=== PATIENT | female | born 1990 | race Caucasian/White ===

== ENCOUNTER 2016-08-19 11:39 | Emergency (ER) | payer MEDICAID, OTHER ==
[2016-08-19 11:39] VITALS: BMI 30.2
[2016-08-19 11:47] VITALS: RESP 18
[2016-08-19 13:31] LABS: BASO % 0.7 % (0.0-2.0); EOS # 0.2 K/uL (0.0-0.7); EOS % 3.6 % (0.0-4.0); HEMOGLOBIN 10.8 g/dL (11.0-16.0); LYMPH # 2.1 K/uL (1.0-4.3); MEAN CELL VOLUME 81.5 fL (81.0-99.0); MEAN CORPUSCULAR HEMOGLOBIN 25.7 pg (27.0-31.0); MEAN CORPUSCULAR HGB CONC 31.5 g/dL (33.0-37.0); MEAN PLATELET VOLUME 9.6 fL (7.2-11.7); MONO # 0.6 K/uL (0.0-0.8); MONO % 9.1 % (0.0-10.0); NEUT # 3.3 K/uL (1.8-7.0); NEUT % 53.6 % (50.0-75.0); RBC 4.22 Mil/uL (3.80-5.20); RED CELL DISTRIBUTION WIDTH 15.2 % (11.5-14.5); WHITE BLOOD COUNT 6.2 K/uL (4.8-10.8)
[2016-08-19 13:38] LABS: ALBUMIN 4.3 g/dL (3.5-5.0)
[2016-08-19 13:41] LABS: ALB/GLOB RATIO 1.2 (1.0-2.1); ALT/SGPT 16 U/L (9-52); AST/SGOT 24 U/L (14-36); BLOOD UREA NITROGEN 9 mg/dL (7-17); GFR AFRICAN-AMERICAN > 60; GFR NON-AFRICAN AMERICAN > 60
[2016-08-19 13:42] LABS: CALCIUM 9.1 mg/dl (8.6-10.4)
--- NOTE | 2016-08-19 13:42 | C.PDOC ---
History Of Present Illness 25-year-old female, presents to the emergency department with complaints of vaginal bleed. Patient states she had a normal period on 07/11 for a few days which stopped. States she began bleeding again on 08/02 and has not stopped. Patient notes associated cramping. Denies control use, and is unsure of whether she is . She is sexually active without contraception. No other complaints at this time. Time Seen by Provider: 08/19/16 13:05 Chief Complaint (Nursing): Abdominal Pain History Per: Patient History/Exam Limitations: no limitations Current Symptoms Are (Timing): Still Present Severity: Moderate Location Of Pain/Discomfort: Suprapubic Past Medical History Reviewed: Historical Data, Nursing Documentation, Vital Signs Vital Signs: Last Vital Signs Temp 97.7 F 08/19/16 11:41 Pulse 76 08/19/16 11:41 Resp 18 08/19/16 11:41 BP 118/77 08/19/16 11:41 Pulse Ox 98 08/19/16 13:46 - Medical History PMH: Denies: Depression - [facility] Procedures DELIVERY OF PRODUCTS OF CONCEPTION, EXTERNAL APPROACH (06/21/15) INJECT/INFUSE ELECTROLYT (07/14/13) INJECT/INFUSE NEC (07/14/13) REPAIR PERINEUM SKIN, EXTERNAL APPROACH (06/21/15) Family History: States: No Known Family Hx - Social History Hx Tobacco Use: No Hx Alcohol Use: Yes Hx Substance Use: No - Immunization History Hx Tetanus Toxoid Vaccination: No Hx Influenza Vaccination: No Hx Pneumococcal Vaccination: No Review Of Systems Except As Marked, All Systems Reviewed And Found Negative. Constitutional: Negative for: Fever, Chills Cardiovascular: Negative for: Chest Pain Gastrointestinal: Negative for: Nausea, Vomiting Genitourinary: Positive for: Vaginal Bleeding, Pelvic Pain. Negative for: Dysuria, Frequency, Vaginal Discharge Musculoskeletal: Negative for: Back Pain Skin: Negative for: Rash Neurological: Negative for: Headache, Dizziness Physical Exam - Physical Exam Appears: Non-toxic Skin: Warm, Dry Head: Atraumatic Eye(s): bilateral: Normal Inspection, PERRL Nose: Normal Oral Mucosa: Moist Lips: Normal Appearing Neck: Normal ROM Cardiovascular: Rhythm Regular, No Murmur Respiratory: Normal Breath Sounds, No Accessory Muscle Use Extremity: Normal ROM Neurological/Psych: Oriented x3, Normal Speech ED Course And Treatment - Laboratory Results Result Diagrams: 08/19/16 13:23 08/19/16 13:23 Lab Interpretation: No Acute Changes Interpretation Of Abnormal: Hgb 10.8 BHCG negative O2 Sat by Pulse Oximetry: 98 Reevaluation Time: 14:19 Reassessment Condition: Unchanged Disposition - Disposition Referrals: [facility] [Outside] Disposition: HOME/ ROUTINE Disposition Time: 14:19 Condition: STABLE Additional Instructions: Start an OTC vitamin with iron and follow up with your rate clerk. Return to the ED if your bleeding worsens or the pain increases. Instructions: Dysfunctional Uterine Bleeding (ED) - Clinical Impression Clinical Impression: Dysfunctional uterine bleeding - Scribe Statement The provider has reviewed the documentation as recorded by the Bia Ya All medical record entries made by the Scribe were at my direction and personally dictated by me. I have reviewed the chart and agree that the record accurately reflects my personal performance of the history, physical exam, medical decision making, and the department course for this patient. I have also personally directed, reviewed, and agree with the discharge instructions and disposition.
[2016-08-19 14:30] VITALS: BP 123/78; PULSE 62; TEMP 98.2; O2SAT 99
== END 2016-08-19 14:25 | disposition home or self-care (01) ==
LOC: C.ER 11:39
DX: N93.8 Other specified abnormal uterine and vaginal bleeding (principal)

== ENCOUNTER 2017-01-25 04:26 | Emergency (ER) | payer MEDICAID, OTHER ==
[2017-01-25 04:26] VITALS: BMI 30.2
--- NOTE | 2017-01-25 04:39 | C.PDOC ---
History Of Present Illness pt presents with abdominal pain and constipation since Wednesday. No f/c/n/v. tolerating po. Has very small amount of stool m and feels very bloated Time Seen by Provider: 01/25/17 04:39 History Per: Patient History/Exam Limitations: no limitations Onset/Duration Of Symptoms: Days (5) Current Symptoms Are (Timing): Still Present Context: Other Severity: Moderate Pain Scale Rating Of: 4 Location Of Pain/Discomfort: Diffuse Radiation Of Pain To:: None Quality Of Discomfort: Dull, Cramping Associated Symptoms: Constipation. denies: Fever, Chills, Nausea Exacerbating Factors: None Alleviating Factors: None Last Bowel Movement: Days Ago Recent travel outside of the [place]: No Additional History Per: Patient Abnormal Vaginal Bleeding: No Past Medical History Reviewed: Historical Data, Nursing Documentation, Vital Signs Vital Signs: Last Vital Signs Temp 98.0 F 01/25/17 04:31 Pulse 85 01/25/17 04:31 Resp 22 01/25/17 04:31 BP 122/75 01/25/17 04:31 Pulse Ox 97 01/25/17 04:46 - Medical History PMH: Denies: Depression - [facility] Procedures DELIVERY OF PRODUCTS OF CONCEPTION, EXTERNAL APPROACH (06/21/15) INJECT/INFUSE ELECTROLYT (07/14/13) INJECT/INFUSE NEC (07/14/13) REPAIR PERINEUM SKIN, EXTERNAL APPROACH (06/21/15) Family History: States: No Known Family Hx - Social History Hx Tobacco Use: No Hx Alcohol Use: Yes Hx Substance Use: No - Immunization History Hx Tetanus Toxoid Vaccination: No Hx Influenza Vaccination: No Hx Pneumococcal Vaccination: No Review Of Systems Constitutional: Negative for: Fever, Chills Cardiovascular: Negative for: Chest Pain Respiratory: Negative for: Shortness of Breath Gastrointestinal: Positive for: Abdominal Pain. Negative for: Nausea, Vomiting Genitourinary: Negative for: Dysuria Musculoskeletal: Negative for: Back Pain Skin: Negative for: Rash Neurological: Negative for: Weakness Psych: Negative for: Anxiety Physical Exam - Physical Exam Appears: Non-toxic, No Acute Distress Skin: Warm, Dry Head: Normacephalic Eye(s): bilateral: Normal Inspection Oral Mucosa: Moist Neck: Supple Cardiovascular: Rhythm Regular Respiratory: No Rales, No Rhonchi, No Wheezing Gastrointestinal/Abdominal: Soft, Tenderness (mild difuse), No Distention, No Rebound Back: No CVA Tenderness Extremity: Normal ROM Extremity: Bilateral: Atraumatic, Normal Color And Temperature, Normal ROM Pulses: Left Dorsalis Pedis: Normal, Right Dorsalis Pedis: Normal Neurological/Psych: Oriented x3, Normal Speech, Normal Cognition Gait: Steady ED Course And Treatment - Laboratory Results Result Diagrams: 01/25/17 04:57 01/25/17 04:57 O2 Sat by Pulse Oximetry: 97 Pulse Ox Interpretation: Normal - Other Rad obstr X-Ray: Interpreted by Me, Viewed By Me Interpretation: lots of stool, no free air or obstr Reevaluation Time: 05:58 Reassessment Condition: Improved Disposition Counseled Patient/Family Regarding: Studies Performed, Diagnosis, Need For Followup, Rx Given - Disposition Referrals: Twin Nunn MD [Medical Doctor] - Disposition: HOME/ ROUTINE Disposition Time: 04:39 Condition: FAIR Prescriptions: Polyethylene Glycol 3350 [Miralax] 17 gm PO DAILY #270 ml Instructions: Constipation (DC) - Clinical Impression Clinical Impression: Constipation
[2017-01-25] MEDS ORDERED: Sodium Chloride 0.9% 1,000 ML IV ONE (04:43)
[2017-01-25 04:59] LABS: SQUAMOUS EPITHIAL 9 /hpf (0-5); URINE BACTERIA OCC (<OCC); URINE BILIRUBIN NEGATIVE (NEGATIVE); URINE BLOOD NEGATIVE (NEGATIVE); URINE CLARITY Clear (Clear); URINE COLOR Yellow (YELLOW); URINE GLUCOSE (UA) NORMAL (Normal); URINE LEUKOCYTE ESTERASE TRACE Leu/uL (Negative); URINE NITRATE NEGATIVE (NEGATIVE); URINE PROTEIN NEGATIVE (NEGATIVE); URINE UROBILINOGEN NORMAL mg/dL (0.2-1.0)
[2017-01-25 05:00] LABS: HCG,QUALITATIVE URINE NEGATIVE (NEGATIVE)
[2017-01-25] MEDS ORDERED: Sodium Chloride 0.9% 1,000 ML ONE (05:02)
[2017-01-25 05:17] LABS: ALB/GLOB RATIO 1.3 (1.0-2.1); ALBUMIN 4.1 g/dL (3.5-5.0); ALT/SGPT 25 U/L (9-52); AST/SGOT 18 U/L (14-36); BLOOD UREA NITROGEN 13 mg/dL (7-17); GFR AFRICAN-AMERICAN > 60; GFR NON-AFRICAN AMERICAN > 60; LIPASE 117 U/L (23-300)
[2017-01-25 05:55] LABS: BASO # 0.1 K/uL (0.0-0.2); BASO % 0.7 % (0.0-2.0); EOS # 0.1 K/uL (0.0-0.7); EOS % 1.4 % (0.0-4.0); HEMOGLOBIN 10.8 g/dL (11.0-16.0); LYMPH # 3.3 K/uL (1.0-4.3); LYMPH % 37.2 % (20.0-40.0); MEAN CELL VOLUME 83.1 fL (81.0-99.0); MEAN CORPUSCULAR HEMOGLOBIN 27.4 pg (27.0-31.0); MEAN CORPUSCULAR HGB CONC 32.9 g/dL (33.0-37.0); MONO # 0.9 K/uL (0.0-0.8); MONO % 10.4 % (0.0-10.0); NEUT # 4.4 K/uL (1.8-7.0); NEUT % 50.3 % (50.0-75.0); NRBC % 0.1 % (0.0-2.0); RBC 3.95 Mil/uL (3.80-5.20); RED CELL DISTRIBUTION WIDTH 14.8 % (11.5-14.5); WHITE BLOOD COUNT 8.7 K/uL (4.8-10.8)
[2017-01-25] MEDS ORDERED: Magnesium Citrate Oral SOL (300 ml) PO ONE (06:00)
[2017-01-25] MEDS ORDERED: Magnesium Citrate Oral SOL (300 ml) ONE (06:10)
[2017-01-25 06:11] VITALS: BP 120/70; PULSE 88; RESP 16; TEMP 98; O2SAT 99
--- NOTE | 2017-01-25 10:00 | RAD ---
PROCEDURE: Radiographs of the chest and abdomen (obstructive series) HISTORY: abd pain COMPARISON: No prior. TECHNIQUE: AP radiograph of the chest, with upright and supine radiographs of the abdomen. FINDINGS: CHEST: Lungs: The lungs are clear. Cardiovascular: Normal size heart. No pulmonary vascular congestion. Pleura: No pleural fluid. No pneumothorax. Other findings: None. ABDOMEN AND PELVIS: Bowel: There is moderate amount of stool in the colon. No evidence of mechanical obstruction. Free air: None. Bones: Unremarkable. Other findings: None. IMPRESSION: Constipation. No evidence of mechanical bowel obstruction. Clear lungs.
== END 2017-01-25 06:11 | disposition home or self-care (01) ==
LOC: C.ER 04:26
DX: K59.00 Constipation, unspecified (principal)
CPT/HCPCS: 74022; 80053; 81001; 83690; 84703; 85025; 96360; 99285; J7040

== ENCOUNTER 2017-10-12 22:12 | Emergency (ER) | payer MEDICAID, OTHER ==
[2017-10-12 22:12] VITALS: BMI 30.2
[2017-10-12 22:27] VITALS: BP 137/86; PULSE 100; RESP 18; TEMP 99.6; O2SAT 98
[2017-10-12 22:56] LABS: HCG,QUALITATIVE URINE NEGATIVE (NEGATIVE)
[2017-10-12 23:04] LABS: SQUAMOUS EPITHIAL 1 /hpf (0-5); URINE BACTERIA RARE (<OCC); URINE BILIRUBIN NEGATIVE (NEGATIVE); URINE BLOOD NEGATIVE (NEGATIVE); URINE CLARITY Clear (Clear); URINE COLOR Yellow (YELLOW); URINE GLUCOSE (UA) NORMAL (Normal); URINE LEUKOCYTE ESTERASE NEG Leu/uL (Negative); URINE PROTEIN NEGATIVE (NEGATIVE); URINE UROBILINOGEN NORMAL mg/dL (0.2-1.0)
--- NOTE | 2017-10-12 23:30 | C.PDOC ---
History Of Present Illness 26 year old female presents to the ED c/o generalized malaise, feeling fatigue, urinary frequency and urgency as well. Patient states " I feel like I am going to get sick" but does not offer and specific complaint. Patient states her LMP was on August, gets intermittent abnormal menses. Patient denies fever, chills, nausea, vomit, diarrhea, dysuria, hematuria, back pain. Time Seen by Provider: 10/12/17 22:36 Chief Complaint (Nursing): Female Genitourinary History Per: Patient History/Exam Limitations: no limitations Onset/Duration Of Symptoms: Days Current Symptoms Are (Timing): Still Present Recent travel outside of the [place]: No Additional History Per: Patient Past Medical History Reviewed: Historical Data, Nursing Documentation, Vital Signs Vital Signs: Last Vital Signs Temp 99.6 F 10/12/17 22:24 Pulse 100 H 10/12/17 22:24 Resp 18 10/12/17 22:24 BP 137/86 10/12/17 22:24 Pulse Ox 98 10/12/17 23:32 - Medical History PMH: No Chronic Diseases Denies: Depression Surgical History: No Surg Hx - [facility] Procedures DELIVERY OF PRODUCTS OF CONCEPTION, EXTERNAL APPROACH (06/21/15) INJECT/INFUSE ELECTROLYT (07/14/13) INJECT/INFUSE NEC (07/14/13) REPAIR PERINEUM SKIN, EXTERNAL APPROACH (06/21/15) Family History: States: Unknown Family Hx - Social History Hx Tobacco Use: No Hx Alcohol Use: Yes Hx Substance Use: No - Immunization History Hx Tetanus Toxoid Vaccination: No Hx Influenza Vaccination: No Hx Pneumococcal Vaccination: No Review Of Systems Constitutional: Positive for: Malaise. Negative for: Fever, Chills Cardiovascular: Negative for: Chest Pain Respiratory: Negative for: Shortness of Breath Gastrointestinal: Negative for: Nausea, Vomiting, Abdominal Pain Neurological: Negative for: Weakness, Numbness Physical Exam - Physical Exam Appears: Non-toxic, No Acute Distress Skin: Normal Color, Warm, Dry Head: Atraumatic, Normacephalic Eye(s): bilateral: Normal Inspection Ear(s): Bilateral: Normal Oral Mucosa: Moist Throat: Normal, No Erythema, No Exudate Neck: Normal ROM, Supple Chest: Symmetrical Cardiovascular: Rhythm Regular Respiratory: Normal Breath Sounds, No Rales, No Rhonchi, No Wheezing Gastrointestinal/Abdominal: Soft, No Tenderness, No Guarding, No Rebound Back: Normal Inspection, No CVA Tenderness Extremity: Normal ROM, No Tenderness, No Swelling Neurological/Psych: Oriented x3, Normal Speech Gait: Steady ED Course And Treatment O2 Sat by Pulse Oximetry: 98 (ON RA) Pulse Ox Interpretation: Normal Progress Note: Plan: - UA. - UcG. On reassessment, patient is resting comfortably, and is in no acute distress. Patient was instructed to follow up with physician/clinic in 1-2 days for further evaluation. Disposition Counseled Patient/Family Regarding: Diagnosis, Need For Followup - Disposition Referrals: Twin Nunn MD [Primary Care Provider] - Disposition: HOME/ ROUTINE Disposition Time: 23:26 Condition: STABLE Additional Instructions: Please follow up with PMD Increase PO fluids/ Bed rest Return to ER if worse Forms: [facility] (Ukrainian), General Discharge Instructions - Clinical Impression Clinical Impression: Viral illness - PA / CLINICAL RESEARCH TECHNICIAN / Resident Statement MD/DO has reviewed & agrees with the documentation as recorded. - Scribe Statement The provider has reviewed the documentation as recorded by the Scribe Bowen Cuellar All medical record entries made by the Scribe were at my direction and personally dictated by me. I have reviewed the chart and agree that the record accurately reflects my personal performance of the history, physical exam, medical decision making, and the department course for this patient. I have also personally directed, reviewed, and agree with the discharge instructions and disposition.
== END 2017-10-12 23:38 | disposition home or self-care (01) ==
LOC: SUPCPDRO 22:12 → C.ER 22:12
DX: B34.9 Viral infection, unspecified (principal)